=== PATIENT | female | born 1930 | race Caucasian/White ===

== ENCOUNTER 2018-09-21 19:51 | Emergency (ER) | payer MEDICARE ==
[~2018-09-21] VITALS: Ht 162.6 cm; Wt 68.0 kg
[~2018-09-21 19:51] MED LIST: AMIT50TA PO; GABA800T5 PO; L.AC1CAP6 PO; SIMV5TAB14 PO; WARF5TAB PO
--- NOTE | 2018-09-21 20:36 | NUR ---
BACK FROM XRAY.
--- NOTE | 2018-09-21 20:37 | NUR ---
THE FAMILY IS AT THE BEDSIDE. THE PT TOOK HER OWN HOME DOSE OF GABAPENTIN.
[2018-09-21 21:08] LABS: INTERNATIONAL NORMALIZED RATIO 3.03 (0.93-1.1); PROTHROMBIN TIME 30.5 Seconds (9.6-11.5)
[2018-09-21] MEDS ORDERED: IBUPROFEN 800 MG TABLET PO ONE (22:00)
[2018-09-21 22:01] VITALS: BP 117/64
== END 2018-09-21 22:05 | disposition home or self-care (01) ==
LOC: ED 21:25
DX: G89.11 Acute pain due to trauma (principal); M25.552 Pain in left hip; M25.562 Pain in left knee; I10 Essential (primary) hypertension; E78.5 Hyperlipidemia, unspecified; I25.10 Atherosclerotic heart disease of native coronary artery without angina pectoris; Z90.710 Acquired absence of both cervix and uterus; Z95.5 Presence of coronary angioplasty implant and graft; Z86.718 Personal history of other venous thrombosis and embolism; Z85.038 Personal history of other malignant neoplasm of large intestine; W01.0XXA Fall on same level from slipping, tripping and stumbling without subsequent striking against object, initial encounter; Y93.89 Activity, other specified; Y92.009 Unspecified place in unspecified non-institutional (private) residence as the place of occurrence of the external cause; Y99.8 Other external cause status
CPT/HCPCS: 36415; 85610; 99284